=== PATIENT | male | born 1960 | race Caucasian/White ===

== ENCOUNTER → 2017-04-01 | Outpatient (CLI) | payer BC ==
[2017-04-01 11:00] LABS: ABSOLUTE EOSINOPHILS # (AUTO) 0.2 10^3/uL (0.0-0.6); ABSOLUTE LYMPHOCYTES (AUTO) 1.3 10^3/uL (0.5-4.7); ABSOLUTE MONOCYTES (AUTO) 0.6 10^3/uL (0.1-1.4); ABSOLUTE NEUT (AUTO) 4.5 10^3/uL (1.7-8.2); BASOPHILS % (AUTO) 0.5 % (0-2); EOSINOPHILS % (AUTO) 3.4 % (0-6); LYMPHOCYTES % (AUTO) 19.8 % (13-45); MEAN CORPUSCULAR HEMOGLOBIN 29.3 pg (27.0-33.4); MEAN CORPUSCULAR HGB CONC 33.4 g/dL (32.0-36.0); MEAN CORPUSCULAR VOLUME 88 fl (80-97); MONOCYTES % (AUTO) 8.6 % (3-13); RED BLOOD COUNT 6.15 10^6/uL (4.35-5.55); RED CELL DISTRIBUTION WIDTH 15.7 % (11.5-14.0); SEGMENTED NEUTROPHILS % (AUTO) 67.7 % (42-78); WHITE BLOOD COUNT 6.7 10^3/uL (4.0-10.5)
== END ==
LOC: OD 10:04
PROVIDERS: ATTEND Internal Medicine
DX: D75.1 Secondary polycythemia (principal)
CPT/HCPCS: 36415; 85025

== ENCOUNTER → 2017-06-28 | Outpatient (CLI) | payer BC ==
[2017-06-28 08:44] LABS: ABSOLUTE EOSINOPHILS # (AUTO) 0.2 10^3/uL (0.0-0.6); ABSOLUTE LYMPHOCYTES (AUTO) 1.4 10^3/uL (0.5-4.7); ABSOLUTE MONOCYTES (AUTO) 0.5 10^3/uL (0.1-1.4); ABSOLUTE NEUT (AUTO) 4.8 10^3/uL (1.7-8.2); BASOPHILS % (AUTO) 0.6 % (0-2); EOSINOPHILS % (AUTO) 2.5 % (0-6); HEMOGLOBIN 17.6 g/dL (13.5-17.0); HGB HCT DIFFERENCE 0.8; LYMPHOCYTES % (AUTO) 19.7 % (13-45); MEAN CORPUSCULAR HEMOGLOBIN 29.7 pg (27.0-33.4); MEAN CORPUSCULAR HGB CONC 33.9 g/dL (32.0-36.0); MEAN CORPUSCULAR VOLUME 88 fl (80-97); MONOCYTES % (AUTO) 7.9 % (3-13); RED BLOOD COUNT 5.93 10^6/uL (4.35-5.55); RED CELL DISTRIBUTION WIDTH 13.9 % (11.5-14.0); SEGMENTED NEUTROPHILS % (AUTO) 69.3 % (42-78); WHITE BLOOD COUNT 6.9 10^3/uL (4.0-10.5)
[2017-06-28 09:10] LABS: ALANINE AMINOTRANSFERASE 39 U/L (21-72); ALBUMIN 4.1 g/dL (3.5-5.0); ALKALINE PHOSPHATASE 84 U/L (38-126); ANION GAP 12 (5-19); ASPARTATE AMINO TRANSFERASE 26 U/L (17-59); BILIRUBIN,DIRECT 0.5 mg/dL (0.0-0.4); BILIRUBIN,TOTAL 1.6 mg/dL (0.2-1.3); BLOOD UREA NITROGEN 12 mg/dL (7-20); CALCIUM 9.8 mg/dL (8.4-10.2); CARBON DIOXIDE 29 mmol/L (22-30); CHLORIDE 102 mmol/L (98-107); CHOLESTEROL 119.66 mg/dL (0-200); CREATININE RESULT 0.91 mg/dL (0.52-1.25); Direct HDL 49 mg/dL (>40); GLUCOSE 88 mg/dL (75-110); POTASSIUM 4.2 mmol/L (3.6-5.0); SODIUM 142.5 mmol/L (137-145); TOTAL PROTEIN 6.9 g/dL (6.3-8.2); TRIGLYCERIDES 88 mg/dL (<150)
[2017-06-28 09:22] LABS: DIRECT LDL 32 mg/dL (<100)
== END ==
LOC: OD 07:37
PROVIDERS: ATTEND Internal Medicine
DX: I10 Essential (primary) hypertension (principal); R35.1 Nocturia; D75.1 Secondary polycythemia; R53.83 Other fatigue; E78.5 Hyperlipidemia, unspecified
CPT/HCPCS: 36415; 80053; 80061; 84153; 84403; 84443; 85025

== ENCOUNTER → 2017-10-18 | Outpatient (CLI) | payer BC ==
[2017-10-18 11:20] LABS: A TYPE INFLUENZA AG NEGATIVE (NEGATIVE); B INFLUENZA AG POSITIVE (NEGATIVE)
== END ==
LOC: OD 10:24
PROVIDERS: ATTEND Internal Medicine
DX: J11.1 Influenza due to unidentified influenza virus with other respiratory manifestations (principal)
CPT/HCPCS: 87804

== ENCOUNTER → 2018-04-24 | Outpatient (CLI) | payer BC ==
[2018-04-24 08:15] LABS: ABSOLUTE EOSINOPHILS # (AUTO) 0.3 10^3/uL (0.0-0.6); ABSOLUTE LYMPHOCYTES (AUTO) 1.3 10^3/uL (0.5-4.7); ABSOLUTE MONOCYTES (AUTO) 0.5 10^3/uL (0.1-1.4); ABSOLUTE NEUT (AUTO) 4.2 10^3/uL (1.7-8.2); BASOPHILS % (AUTO) 0.5 % (0-2); HEMATOCRIT 47.2 % (37.9-51.0); HEMOGLOBIN 16.4 g/dL (13.5-17.0); LYMPHOCYTES % (AUTO) 21.3 % (13-45); MEAN CORPUSCULAR HEMOGLOBIN 29.8 pg (27.0-33.4); MEAN CORPUSCULAR HGB CONC 34.7 g/dL (32.0-36.0); MEAN CORPUSCULAR VOLUME 86 fl (80-97); MONOCYTES % (AUTO) 8.4 % (3-13); PLATELET COUNT 149 10^3/uL (150-450); RED CELL DISTRIBUTION WIDTH 14.5 % (11.5-14.0); SEGMENTED NEUTROPHILS % (AUTO) 65.8 % (42-78); TOTAL CELLS COUNTED % (AUTO) 100 %; WHITE BLOOD COUNT 6.3 10^3/uL (4.0-10.5)
[2018-04-24 08:53] LABS: ALANINE AMINOTRANSFERASE 24 U/L (21-72); ALKALINE PHOSPHATASE 80 U/L (38-126); ANION GAP 11 (5-19); ASPARTATE AMINO TRANSFERASE 27 U/L (17-59); BILIRUBIN,DIRECT 0.4 mg/dL (0.0-0.4); BILIRUBIN,TOTAL 1.2 mg/dL (0.2-1.3); BLOOD UREA NITROGEN 18 mg/dL (7-20); CALCIUM 9.8 mg/dL (8.4-10.2); CARBON DIOXIDE 28 mmol/L (22-30); CHLORIDE 103 mmol/L (98-107); CHOLESTEROL 165.62 mg/dL (0-200); GLUCOSE 95 mg/dL (75-110); POTASSIUM 4.5 mmol/L (3.6-5.0); TOTAL PROTEIN 7.1 g/dL (6.3-8.2); TRIGLYCERIDES 142 mg/dL (<150)
[2018-04-24 09:04] LABS: DIRECT LDL 44 mg/dL (<100)
== END ==
LOC: OD 07:37
PROVIDERS: ATTEND Internal Medicine
DX: I10 Essential (primary) hypertension (principal); E78.5 Hyperlipidemia, unspecified; E29.1 Testicular hypofunction; D75.1 Secondary polycythemia
CPT/HCPCS: 36415; 80053; 80061; 84402; 84403; 84443; 85025

== ENCOUNTER → 2019-01-24 | Outpatient (CLI) | payer BC ==
[2019-01-24 08:49] LABS: ABSOLUTE EOSINOPHILS # (AUTO) 0.2 10^3/uL (0.0-0.6); ABSOLUTE LYMPHOCYTES (AUTO) 1.4 10^3/uL (0.5-4.7); ABSOLUTE MONOCYTES (AUTO) 0.5 10^3/uL (0.1-1.4); ABSOLUTE NEUT (AUTO) 4.7 10^3/uL (1.7-8.2); BASOPHILS % (AUTO) 0.5 % (0-2); EOSINOPHILS % (AUTO) 3.4 % (0-6); HEMATOCRIT 47.7 % (37.9-51.0); HEMOGLOBIN 16.3 g/dL (13.5-17.0); LYMPHOCYTES % (AUTO) 20.1 % (13-45); MEAN CORPUSCULAR HGB CONC 34.1 g/dL (32.0-36.0); MEAN CORPUSCULAR VOLUME 85 fl (80-97); MONOCYTES % (AUTO) 7.5 % (3-13); PLATELET COUNT 148 10^3/uL (150-450); RED BLOOD COUNT 5.61 10^6/uL (4.35-5.55); RED CELL DISTRIBUTION WIDTH 14.1 % (11.5-14.0); SEGMENTED NEUTROPHILS % (AUTO) 68.5 % (42-78); TOTAL CELLS COUNTED % (AUTO) 100 %; WHITE BLOOD COUNT 6.9 10^3/uL (4.0-10.5)
[2019-01-24 09:23] LABS: ALANINE AMINOTRANSFERASE 27 U/L (21-72); ALKALINE PHOSPHATASE 89 U/L (38-126); ANION GAP 10 (5-19); ASPARTATE AMINO TRANSFERASE 26 U/L (17-59); BILIRUBIN,DIRECT 0.3 mg/dL (0.0-0.4); BILIRUBIN,TOTAL 1.4 mg/dL (0.2-1.3); BLOOD UREA NITROGEN 13 mg/dL (7-20); CALCIUM 9.7 mg/dL (8.4-10.2); CARBON DIOXIDE 30 mmol/L (22-30); CHLORIDE 102 mmol/L (98-107); CHOLESTEROL 138.57 mg/dL (0-200); GLUCOSE 90 mg/dL (75-110); SODIUM 142.4 mmol/L (137-145); TOTAL PROTEIN 6.9 g/dL (6.3-8.2); TRIGLYCERIDES 136 mg/dL (<150)
[2019-01-24 09:34] LABS: DIRECT LDL 44 mg/dL (<100)
== END ==
LOC: OD 07:13
PROVIDERS: ATTEND Internal Medicine
DX: D75.1 Secondary polycythemia (principal); I10 Essential (primary) hypertension; E29.1 Testicular hypofunction; R53.83 Other fatigue
CPT/HCPCS: 36415; 80053; 80061; 84403; 84443; 85025

== ENCOUNTER 2019-07-09 10:51 | Day surgery (SDC) | payer BC ==
[2019-07-02 11:01] LABS: HEMATOCRIT 50.2 % (37.9-51.0); HEMOGLOBIN 17.1 g/dL (13.5-17.0); MEAN CORPUSCULAR HGB CONC 34.1 g/dL (32.0-36.0); MEAN CORPUSCULAR VOLUME 85 fl (80-97); PLATELET COUNT 152 10^3/uL (150-450); RED BLOOD COUNT 5.89 10^6/uL (4.35-5.55); WHITE BLOOD COUNT 6.9 10^3/uL (4.0-10.5)
[2019-07-02 11:09] LABS: APPEARANCE,URINE CLEAR; BILIRUBIN,URINE NEGATIVE (NEGATIVE); COLOR,URINE STRAW; GLUCOSE, URINE NEGATIVE (NEGATIVE); KETONES,URINE NEGATIVE (NEGATIVE); LEUKOCYTE ESTERASE,URINE NEGATIVE (NEGATIVE); NITRITE,URINE NEGATIVE (NEGATIVE); PROTEIN,URINE NEGATIVE (NEGATIVE); URINE SPECIFIC GRAVITY 1.006; UROBILINOGEN,URINE NEGATIVE mg/dL (<2.0)
[2019-07-02 11:23] LABS: ANION GAP 10 (5-19); BLOOD UREA NITROGEN 11 mg/dL (7-20); CALCIUM 10.2 mg/dL (8.4-10.2); CARBON DIOXIDE 30 mmol/L (22-30); CHLORIDE 99 mmol/L (98-107); GLUCOSE 96 mg/dL (75-110); POTASSIUM 4.1 mmol/L (3.6-5.0)
--- NOTE | 2019-07-02 12:50 | RADIOLOGY REPORT (SQ) ---
EXAM DESCRIPTION: CHEST PA/LATERAL COMPLETED DATE/TIME: 07/02/2019 10:39 am REASON FOR STUDY: PRE-OP COMPARISON: None. EXAM PARAMETERS: NUMBER OF VIEWS: two views TECHNIQUE: Digital Frontal and Lateral radiographic views of the chest acquired. RADIATION DOSE: NA LIMITATIONS: none FINDINGS: LUNGS AND PLEURA: No opacities, masses or pneumothorax. No pleural effusion. MEDIASTINUM AND HILAR STRUCTURES: No masses or contour abnormalities. HEART AND VASCULAR STRUCTURES: Heart normal size. No evidence for failure. BONES: No acute findings. HARDWARE: None in the chest. OTHER: No other significant finding. IMPRESSION: NO SIGNIFICANT RADIOGRAPHIC FINDING IN THE CHEST. TECHNICAL DOCUMENTATION: JOB ID: [id number] [employer]- All Rights Reserved Reading location - IP/workstation name: [email or web address]
--- NOTE | 2019-07-03 18:03 | EKG REPORT ---
SEVERITY:- NORMAL ECG - SINUS RHYTHM : Confirmed by: Caroline Marquez 03-Jul-2019 18:02:44
[~2019-07-09 10:51] MED LIST: CEFAZOLIN SODIUM 2 GM in DEXTROSE 5%-WATER 100 ML IV PRN; LACTATED RINGERS 1000 ML IV PRN; LIDOCAINE 0.5% INJ-PF (5 MG/ML) 50 ML SDV SUBCUT PRN
[2019-07-09] MEDS ORDERED: MIDAZOLAM 2 MG/2 ML INJ ONE (13:09)
[2019-07-09] MEDS ORDERED: FENTANYL CITRATE INJ/PF 100 MCG/2 ML AMPUL ONE (13:09)
[2019-07-09] MEDS ORDERED: PROPOFOL INJ 200 MG/20 ML VIAL IV ONE (13:10)
[2019-07-09] MEDS ORDERED: LIDOCAINE 1%/EPINEPHRINE INJ 20 ML VIAL ONE (13:58)
[2019-07-09] MEDS ORDERED: BUPIVACAINE HCL 0.5 % INJ/PF 30 ML SDV ONE (13:58)
[2019-07-09] MEDS ORDERED: FENTANYL CITRATE INJ/PF 100 MCG/2 ML AMPUL IV PRN ×3 (14:42)
[2019-07-09] MEDS ORDERED: MEPERIDINE HCL/PF INJ 25 MG/1 ML DISP.SYRIN IV PRN (14:42)
[2019-07-09] MEDS ORDERED: DIPHENHYDRAMINE HCL 50 MG/ML VIAL IV PRN (14:42)
[2019-07-09] MEDS ORDERED: OXYCODONE-ACETAMINOPHEN 5-325 MG TABLET PO PRN ×2 (14:42)
[2019-07-09] MEDS ORDERED: PROMETHAZINE HCL INJ 25 MG/1 ML VIAL IV PRN ×2 (14:42)
--- NOTE | 2019-07-09 14:58 | Operative Report ---
Operative Report DATE OF SURGERY: 07/09/19 PREOPERATIVE DIAGNOSIS: Left medial meniscal tear POSTOPERATIVE DIAGNOSIS: Left medial meniscal tear. 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 Intact ACL. Grade I chondromalacia of the lateral compartment. Intact lateral meniscus. Grade 3 chondral malacia the patellofemoral compartment OPERATION: Arthroscopic left partial medial meniscectomy SURGEON: KENIA STANTON ANESTHESIA: LMAC ESTIMATED BLOOD LOSS: Minimal PROCEDURE: With the patient on the operating table left lower extremities prepped and draped in a sterile fashion. The knee is insufflated with combination of Marcaine, Xylocaine, and epinephrine through medial lateral infrapatellar portals. Portals are created and used the introduction of arthroscope and debridement instrumentation. The joint is examined in systematic fashion findings as above. Using combination basket Mcneal, mechanical shaver, electric frequency ablation probe a partial medial meniscectomy was performed from proximally 6:00 to 12:00 on the face of the dial. The joint is again examined in systematic fashion with no new findings. Instrumentation was removed. Portals closed with interrupted nylon. A sterile compressive dressing was applied. The patient return to the PACU in satisfactory condition.
--- NOTE | 2019-07-09 15:00 | Discharge Summary ---
Discharge Summary (SDC) - Discharge Final Diagnosis: Left medial meniscal tear Date of Surgery: 07/09/19 Discharge Date: 07/09/19 Condition: Good Forms: ASU Anesthesia D/C Instruction, Discharge POC-Surgical Service Treatment or Instructions: Weightbearing as tolerated ambulation. Remove compressive wrap on Tuesday. Underlying OpSite dressing can be left in place until you return to the office. Prescriptions: Oxycodone HCl/Acetaminophen [Percocet 5-325 mg Tablet] 1 tab PO Q6 PRN #24 tablet PRN Reason: Referrals: SUZANNA CARRILLO MD [Primary Care Provider] - KENIA STANTON MD [ACTIVE STAFF] - 07/25/19 1:00 pm Discharge Diet: Regular Respiratory Treatments at Home: Deep Breathing/Coughing Discharge Activity: Balance Activity w/Rest, No tub bath Home Care Assistance: None Needed Report the Following to Your Physician Immediately: Shortness of Breath, Fever over 101 Degrees, Drainage-Foul Smelling
[2019-07-09 16:40] VITALS: BP 149/86
== END 2019-07-09 16:35 | disposition home or self-care (01) ==
LOC: OROUT 10:51
PROVIDERS: ATTEND Orthopaedic Surgery
DX: M23.304 Other meniscus derangements, unspecified medial meniscus, left knee (principal); M22.42 Chondromalacia patellae, left knee; M25.562 Pain in left knee; I10 Essential (primary) hypertension
CPT/HCPCS: 93005; 36415 ×2; 84132; 85027; 80048; 81001; 71046; 93010; 29881; J2250; J3490 ×2; J0690; J3010; J7060; J2704; 1400

== ENCOUNTER → 2020-02-27 | Outpatient (CLI) | payer BC ==
[2020-02-27 08:56] LABS: ABSOLUTE EOSINOPHILS # (AUTO) 0.2 10^3/uL (0.0-0.6); ABSOLUTE LYMPHOCYTES (AUTO) 1.3 10^3/uL (0.5-4.7); ABSOLUTE MONOCYTES (AUTO) 0.6 10^3/uL (0.1-1.4); ABSOLUTE NEUT (AUTO) 4.7 10^3/uL (1.7-8.2); BASOPHILS % (AUTO) 0.6 % (0-2); EOSINOPHILS % (AUTO) 2.7 % (0-6); HEMATOCRIT 52.3 % (37.9-51.0); HEMOGLOBIN 17.6 g/dL (13.5-17.0); LYMPHOCYTES % (AUTO) 18.6 % (13-45); MEAN CORPUSCULAR HEMOGLOBIN 29.4 pg (27.0-33.4); MEAN CORPUSCULAR HGB CONC 33.7 g/dL (32.0-36.0); MEAN CORPUSCULAR VOLUME 87 fl (80-97); MONOCYTES % (AUTO) 8.9 % (3-13); PLATELET COUNT 148 10^3/uL (150-450); RED CELL DISTRIBUTION WIDTH 14.4 % (11.5-14.0); SEGMENTED NEUTROPHILS % (AUTO) 69.2 % (42-78); TOTAL CELLS COUNTED % (AUTO) 100 %; WHITE BLOOD COUNT 6.7 10^3/uL (4.0-10.5)
[2020-02-27 09:23] LABS: ALBUMIN 4.3 g/dL (3.5-5.0); ALKALINE PHOSPHATASE 92 U/L (38-126); ANION GAP 9 (5-19); ASPARTATE AMINO TRANSFERASE 28 U/L (17-59); BILIRUBIN,DIRECT 0.1 mg/dL (0.0-0.4); BILIRUBIN,TOTAL 1.8 mg/dL (0.2-1.3); BLOOD UREA NITROGEN 14 mg/dL (7-20); CALCIUM 9.8 mg/dL (8.4-10.2); CARBON DIOXIDE 26 mmol/L (22-30); CHLORIDE 102 mmol/L (98-107); CHOLESTEROL 159.38 mg/dL (0-200); GLUCOSE 87 mg/dL (75-110); POTASSIUM 4.2 mmol/L (3.6-5.0); TOTAL PROTEIN 6.9 g/dL (6.3-8.2); TRIGLYCERIDES 142 mg/dL (<150)
[2020-02-27 09:36] LABS: DIRECT LDL 52 mg/dL (<100)
== END ==
LOC: OD 07:23
PROVIDERS: ATTEND Internal Medicine
DX: I10 Essential (primary) hypertension (principal); E78.5 Hyperlipidemia, unspecified; K21.9 Gastro-esophageal reflux disease without esophagitis; E29.1 Testicular hypofunction; R53.83 Other fatigue; R35.1 Nocturia
CPT/HCPCS: 36415; 80053; 80061; 83036; 84153; 84403; 84443; 85025

== ENCOUNTER 2020-07-01 11:27 | Emergency (ER) | payer OTHER ==
[2020-07-01] MEDS ORDERED: DIPH/PERTUSS(ACELL)/TETANUS VAC/PF 0.5 ML SYR (>=10YO) IM ONE (13:25)
[2020-07-01] MEDS ORDERED: HYDROCODONE/ACETAMINOPHEN 5-325 MG TABLET PO ONE (13:25)
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
[2020-07-01] MEDS ORDERED: DIPHENHYDRAMINE HCL 50 MG/ML VIAL IV ONE (16:57)
[2020-07-01] MEDS ORDERED: FAMOTIDINE INJ/PF 20 MG/2 ML SDV IV ONE (16:57)
[2020-07-01] MEDS ORDERED: METHYLPREDNISOLONE INJ 125 MG/2 ML SDV IV ONE (16:57)
--- NOTE | 2020-07-01 17:02 | ER Document Report ---
Doctor's Note Notes: 07/01/20 16:54 Patient's partner noticed that his upper lip is swollen, patient is not complaining of any shortness of breath, tongue does not have any swelling, speech is clear. Patient did receive a [place] 5mg-325mg, states he has taken this before without any issues. Patient is not in any distress. I do not suspect this is an allergic reaction, but more gravity pulling the swelling down from the forehead to the upper lip. To error on the side of caution, will give patient IV Benadryl, Solu-Medrol and famotidine. Charge nurse, Shavon Norton, made aware of patient's change in condition and patient made a level two. Dr. Paul MD, made aware and agree with plan of care.
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
[2020-07-01] MEDS ORDERED: HYDROCODONE/ACETAMINOPHEN 5-325 MG (6 TAB/ER DISP) PO PRN (19:31)
[2020-07-01] MEDS ORDERED: CEPHALEXIN 500 MG CAPSULE PO ONE (19:31)
[2020-07-01 20:20] VITALS: BP 160/98
== END 2020-07-01 20:21 | disposition home or self-care (01) ==
LOC: ER 11:27
DX: S02.19XA Other fracture of base of skull, initial encounter for closed fracture (principal); S01.81XA Laceration without foreign body of other part of head, initial encounter; W20.8XXA Other cause of strike by thrown, projected or falling object, initial encounter; Y93.89 Activity, other specified; Y99.0 Civilian activity done for income or pay; T78.3XXA Angioneurotic edema, initial encounter; Z23 Encounter for immunization; I10 Essential (primary) hypertension; E78.00 Pure hypercholesterolemia, unspecified; Z79.899 Other long term (current) drug therapy; Z79.82 Long term (current) use of aspirin
CPT/HCPCS: 99285; 96374; 96375; 70450; 70486; 90715; 12011; J1200; J2930; S0028

== ENCOUNTER → 2020-10-02 | Outpatient (CLI) | payer OTHER | LOC: RAD 10:47 | PROVIDERS: ATTEND Otolaryngology | DX: S02.19XA Other fracture of base of skull, initial encounter for closed fracture (principal); X58.XXXA Exposure to other specified factors, initial encounter | CPT/HCPCS: 70486 ==